=== PATIENT | male | born 1980 | race African-American/Black ===

== ENCOUNTER 2018-09-21 12:42 | Emergency (ER) | payer SELFPAY ==
--- NOTE | 2018-09-21 13:11 | EDM.PDOC ---
ED HPI GENERAL MEDICAL PROBLEM - General Chief Complaint: Gastrointestinal Problem Stated Complaint: STOMACH FLU Time Seen by Provider: 09/21/18 12:43 Source of Information: Reports: Patient History Limitations: Reports: No Limitations - History of Present Illness INITIAL COMMENTS - FREE TEXT/NARRATIVE: HISTORY AND PHYSICAL: History of present illness: Patient is a 38-year-old male presents to the ED today with concern of nausea since last night. Patient states this night he had 1-2 episodes of vomiting. Patient states he's here in the ED today with symptoms of nausea and is here to get a work note saying he can go back to work. Patient denies any abdominal pain or any other symptoms at this time. Patient denies fever, chills, chest pain, shortness of breath, or cough. Denies headache, neck stiff ness, change in vision, syncope, or near syncope. Denies vomiting, abdominal pain, diarrhea, constipation, or dysuria. Has not noted any blood in urine or stool. Patient has been eating and drinking appropriately. Review of systems: As per history of present illness and below otherwise all systems reviewed and negative. Past medical history: As per history of present illness and as reviewed below otherwise noncontributory. Surgical history: As per history of present illness and as reviewed below otherwise noncontributory. Social history: See social history for further information Family history: As per history of present illness and as reviewed below otherwise noncontributory. Physical exam: General: Patient is alert, oriented, and in no acute distress. Patient sitting comfortably on exam table. HEENT: Atraumatic, normocephalic, pupils equal and reactive bilaterally, negative for conjunctival pallor or scleral icterus, mucous membranes moist, TMs normal bilaterally, throat clear, neck supple, nontender, trachea midline. No drooling or trismus noted. No meningeal signs. No hot potato voice noted. Lungs: Clear to auscultation, breath sounds equal bilaterally, chest nontender. Heart: S1S2, regular rate and rhythm without overt murmur Abdomen: Soft, nondistended, nontender. Negative for masses or hepatosplenomegaly. Negative for costovertebral tenderness. Pelvis: Stable nontender. Genitourinary: Deferred. Rectal: Deferred. Skin: Intact, warm, dry. No lesions or rashes noted. Extremities: Atraumatic, negative for cords or calf pain. Neurovascular unremarkable. Neuro: Awake, alert, oriented. Cranial nerves II through XII unremarkable. Cerebellum unremarkable. Motor and sensory unremarkable throughout. Exam nonfocal. Notes: Discussed the importance for follow-up with primary care provider. Voices understanding and is agreeable to plan of care. Denies any further questions or concerns at this time. Diagnostics: None (Patient declines all diagnostics) Therapeutics: None Prescription: Zofran Impression: Nausea Medical screening exam Plan: 1. Take medication as prescribed. You can alternate ibuprofen and Tylenol as directed for pain and discomfort. 2. Follow-up with the primary care provider as discussed. Return to the ED as needed and as discussed. Definitive disposition and diagnosis as appropriate pending reevaluation and review of above. - Related Data Allergies Allergy/AdvReac Type Severity Reaction Status Date / Time No Known Allergies Allergy Verified 09/21/18 12:50 Home Meds: Home Meds Ondansetron [Zofran ODT] 4 mg PO Q6H #7 tab.dis 09/21/18 [Rx] Past Medical History Cardiovascular History: Reports: Hypertension Social & Family History - Family History Family Medical History: Noncontributory - Tobacco Use Smoking Status *Q: Never Smoker - Recreational Drug Use Recreational Drug Use: No ED ROS GENERAL - Review of Systems Review Of Systems: ROS reveals no pertinent complaints other than HPI. ED EXAM, GENERAL - Physical Exam Exam: See Below (See dictation) Course - Vital Signs Last Recorded V/S: Last Vital Signs Temp 36.3 C 09/21/18 12:51 Pulse 89 09/21/18 12:51 Resp 16 09/21/18 12:51 BP 159/104 H 09/21/18 12:51 Pulse Ox 95 09/21/18 12:51 Departure - Departure Time of Disposition: 13:11 Disposition: Home, Self-Care 01 Clinical Impression: Nausea, Encounter for medical screening examination - Discharge Information Prescriptions: Ondansetron [Zofran ODT] 4 mg PO Q6H #7 tab.dis Instructions: Medical Screening Exam, Nausea, Adult, [id number] Referrals: PCP,None [Primary Care Provider] - Forms: ED Department Discharge Additional Instructions: The following information is given to patients seen in the emergency department who are being discharged to home. This information is to outline your options for follow-up care. We provide all patients seen in our emergency department with a follow-up referral. The need for follow-up, as well as the timing and circumstances, are variable depending upon the specifics of your emergency department visit. If you don't have a primary care physician on staff, we will provide you with a referral. We always advise you to contact your personal physician following an emergency department visit to inform them of the circumstance of the visit and for follow-up with them and/or the need for any referrals to a consulting specialist. The emergency department will also refer you to a specialist when appropriate. This referral assures that you have the opportunity for follow-up care with a specialist. All of these measure are taken in an effort to provide you with optimal care, which includes your follow-up. Under all circumstances we always encourage you to contact your private physician who remains a resource for coordinating your care. When calling for follow-up care, please make the office aware that this follow-up is from your recent emergency room visit. If for any reason you are refused follow-up, please contact the [facility] Emergency Department at and asked to speak to the emergency department charge nurse. [facility] [address] [place] [id number] [facility] [address] [place] [id number] 1. Take medication as prescribed. You can alternate ibuprofen and Tylenol as directed for pain and discomfort. 2. Follow-up with the primary care provider as discussed. Return to the ED as needed and as discussed.
== END 2018-09-21 13:20 | disposition home or self-care (01) ==
LOC: MW.ED 12:42
DX: R11.2 Nausea with vomiting, unspecified (principal)
CPT/HCPCS: 99282; 99283

== ENCOUNTER 2018-12-15 03:20 | Emergency (ER) | payer SELFPAY ==
[2018-12-15] MEDS ORDERED: Sodium Chloride 0.9% 10 ML Syringe FLUSH PRN (03:40)
[2018-12-15] MEDS ORDERED: Sodium Chloride 0.9% 2.5 ML Syringe FLUSH PRN (03:40)
[2018-12-15] MEDS ORDERED: Ketorolac 30 MG/ML SDV IVPUSH ONE (03:40)
--- NOTE | 2018-12-15 03:46 | EDM.PDOC ---
ED HPI GENERAL MEDICAL PROBLEM - General Chief Complaint: Back Pain or Injury Stated Complaint: BACK PAIN Time Seen by Provider: 12/15/18 03:30 - History of Present Illness INITIAL COMMENTS - FREE TEXT/NARRATIVE: HISTORY AND PHYSICAL: History of present illness: The patient is a 38-year-old male with a history of kidney stones for which she has had lithotripsy in the past who presents with greater than 2 weeks of lumbar back pain more on the right side. The patient initially told the triage nurse that it started worsening after playing basketball and he thought that he pulled muscles in his back but he says he has had issues with his back on and off over many years and has never sought any professional evaluation or treatment for it such as imaging or physical therapy. He says that he did not have an acute injury to her so weeks ago but he attributes the pain worsening after playing basketball. The pain is mostly on the right side and does come around to the anterior side of his abdomen and he has had urinary frequency but no hematuria or dysuria. He's had no numbness or tingling no bowel or bladder disturbances and the pain does not radiate to his leg and there is no numbness weakness or tingling in his legs bilaterally. The patient has tried a patch that he bought [id number] to help with the pain but is not taking any oral medications even Tylenol or ibuprofen. In the past he says he has never sought treatment and has never received any medications for episodes of back pain he has had. 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 He's had no recent trauma and denies any past trauma only that he has had back problems for many years without a formal diagnosis. The patient tells me that certain movements will make the pain worse and in the past when he has had flareups of it just simple turning and movements can aggravated and this is very similar. The patient tells me that he just got off a plane in [place] and drove here to [place] where he is staying. He did not go to the ER there treatment he chose to come here instead. Review of systems: As per history of present illness and below otherwise all systems reviewed and negative. Past medical history: As per history of present illness and as reviewed below otherwise noncontributory. Surgical history: As per history of present illness and as reviewed below otherwise noncontributory. Social history: No reported history of drug or alcohol abuse. Family history: As per history of present illness and as reviewed below otherwise noncontributory. Physical exam: General: Well-developed well-nourished man who is nontoxic and ambulatory in the ED. He walks without ataxia and vital signs are noted by me HEENT: Atraumatic, normocephalic,negative for conjunctival pallor or scleral icterus, mucous membranes moist, throat clear, neck supple, nontender, trachea midline. Lungs: Clear to auscultation, breath sounds equal bilaterally, chest nontender. Heart: S1S2, regular rate and rhythm no overt murmurs Abdomen: Soft, nondistended, nontender. NABS. Negative for costovertebral tenderness. Pelvis: Stable nontender. Genitourinary: Deferred. Rectal: Deferred. Extremities: Atraumatic, full range of motion without defects or deficits Neurovascular unremarkable. Neuro: Awake, alert, oriented. Cranial nerves II through XII unremarkable. Cerebellum unremarkable. Motor and sensory unremarkable throughout. Exam nonfocal. Dorsi and plantar flexion is intact 5/5 inclusive of the great toe and patellar reflexes are +2 over 4 bilaterally. Patient's gait in the ED was steady. Back: There are no midline step-offs tenderness defects of the thoracic or lumbar spine no CVA tenderness and no reproducible paraspinal lumbar musculature discomfort or spasm and no SI joint discomfort or tenderness. In fact on palpation I was unable to reproduce the pain and the patient says that he does not feel it when I touch the area more when he does certain movements. Diagnostics: CBC CMP UA with reflex CT scan of the abdomen and pelvis lumbar spine Therapeutics: IV placement, Toradol I discussed with the patient that I will do imaging to evaluate him for kidney stone as this has been a problem in the past and the pain is more on the right side. He also has the complaints of the frequency of urination. The pain appears to be out of proportion to my exam and the patient has definite concerns about the intensity of the pain and the chronicity of it. All testing results have been discussed with the patient and he definitely is having more pain with movement. He is aware that he needs a follow-up with urology for further imaging as indicated and he does not want to call for a ride and wants to drive himself home so I will give him [facility] to try at home for the discomfort and pain. Impression: Lumbar back pain, intrarenal kidney stone right, ill-defined lesion right kidney Definitive disposition and diagnosis as appropriate pending reevaluation and review of above. low back Pain Score (Numeric/FACES): 10 - Related Data Allergies Allergy/AdvReac Type Severity Reaction Status Date / Time hydromorphone [From Dilaudid] Allergy Itching Verified 12/15/18 03:34 Home Meds: Home Meds . [No Known Home Meds] 12/15/18 [History] Past Medical History Cardiovascular History: Reports: Hypertension Genitourinary History: Reports: Renal Calculus - Past Surgical History Male Surgical History: Reports: Lithotripsy ([facility]) Social & Family History - Family History Family Medical History: Noncontributory - Tobacco Use Smoking Status *Q: Never Smoker - Recreational Drug Use Recreational Drug Use: No ED ROS GENERAL - Review of Systems Review Of Systems: ROS reveals no pertinent complaints other than HPI. ED EXAM, GENERAL - Physical Exam Exam: See Below (See dictation) Course - Vital Signs Last Recorded V/S: Last Vital Signs Temp 35.6 C 12/15/18 03:23 Pulse 79 12/15/18 03:23 Resp 18 12/15/18 03:23 BP 163/115 H 12/15/18 03:23 Pulse Ox 96 12/15/18 03:23 - Orders/Labs/Meds Orders: Active Orders 24 hr Category Date Time Status Sodium Chloride 0.9% [Normal Saline] 1,000 ml Med 12/15/18 04:06 Active IV STAT Sodium Chloride 0.9% [Saline Flush] Med 12/15/18 03:40 Active 10 ml FLUSH ASDIRECTED PRN Sodium Chloride 0.9% [Saline Flush] Med 12/15/18 03:40 Active 2.5 ml FLUSH ASDIRECTED PRN Saline Lock Insert [OM.PC] Stat Oth 12/15/18 03:40 Ordered Medication Orders Sodium Chloride (Normal Saline) 1,000 mls @ 999 mls/hr IV STAT ONE Stop: 12/15/18 05:06 Last Admin: 12/15/18 04:09 Dose: 999 mls/hr Sodium Chloride (Saline Flush) 10 ml FLUSH ASDIRECTED PRN PRN Reason: Keep Vein Open Sodium Chloride (Saline Flush) 2.5 ml FLUSH ASDIRECTED PRN PRN Reason: Keep Vein Open Labs: Laboratory Tests 12/15/18 12/15/18 12/15/18 Range/Units 03:30 03:45 03:45 WBC 7.85 (4.0-11.0) K/uL RBC 4.67 (4.50-5.90) M/uL Hgb 14.1 (13.0-17.0) g/dL Hct 42.2 (38.0-50.0) % MCV 90.4 (80.0-98.0) fL MCH 30.2 (27.0-32.0) pg MCHC 33.4 (31.0-37.0) g/dL RDW Std Deviation 45.5 (28.0-62.0) fl RDW Coeff of Eduarda 14 (11.0-15.0) % Plt Count 227 (150-400) K/uL MPV 11.70 (7.40-12.00) fL Neut % (Auto) 59.0 (48.0-80.0) % Lymph % (Auto) 28.4 (16.0-40.0) % [place] % (Auto) 10.1 (0.0-15.0) % Eos % (Auto) 1.9 (0.0-7.0) % Baso % (Auto) 0.6 (0.0-1.5) % Neut # (Auto) 4.6 (1.4-5.7) K/uL Lymph # (Auto) 2.2 (0.6-2.4) K/uL [place] # (Auto) 0.8 (0.0-0.8) K/uL Eos # (Auto) 0.2 (0.0-0.7) K/uL Baso # (Auto) 0.1 (0.0-0.1) K/uL Nucleated RBC % 0.0 /100WBC Nucleated RBCs # 0 K/uL Sodium 145 (136-148) mmol/L Potassium 4.0 (3.5-5.1) mmol/L Chloride 106 (98-107) mmol/L Carbon Dioxide 29.8 (21.0-32.0) mmol/L BUN 17 (7.0-18.0) mg/dL Creatinine 1.3 (0.8-1.3) mg/dL Est Cr Clr Drug Dosing 75.53 mL/min Estimated GFR (MDRD) > 60.0 ml/min Glucose 94 (74-106) mg/dL Calcium 8.8 (8.5-10.1) mg/dL Total Bilirubin 0.3 (0.2-1.0) mg/dL AST 21 (15-37) IU/L ALT 20 (14-63) IU/L Alkaline Phosphatase 78 (46-116) U/L Total Protein 6.6 (6.4-8.2) g/dL Albumin 3.2 L (3.4-5.0) g/dL Globulin 3.4 (2.6-4.0) g/dL Albumin/Globulin Ratio 0.9 (0.9-1.6) Urine Color YELLOW Urine Appearance CLEAR Urine pH 6.0 (5.0-8.0) Ur Specific [place] >= 1.030 (1.001-1.035) Urine Protein NEGATIVE (NEGATIVE) mg/dL Urine Glucose (UA) NEGATIVE (NEGATIVE) mg/dL Urine Ketones NEGATIVE (NEGATIVE) mg/dL Urine Occult Blood MODERATE H (NEGATIVE) Urine Nitrite NEGATIVE (NEGATIVE) Urine Bilirubin NEGATIVE (NEGATIVE) Urine Urobilinogen 0.2 (<2.0) EU/dL Ur Leukocyte Esterase NEGATIVE (NEGATIVE) Urine RBC 2-4 (0-2/HPF) Urine WBC 0-1 (0-5/HPF) Ur Epithelial Cells RARE (NONE-FEW) Urine Bacteria RARE (NEGATIVE) Meds: Medications Generic Name Dose Route Start Last Admin Trade Name Freq PRN Reason Stop Dose Admin Sodium Chloride 1,000 mls @ 999 mls/hr 12/15/18 04:06 12/15/18 04:09 Normal Saline IV 12/15/18 05:06 999 mls/hr STAT ONE Administration Sodium Chloride 10 ml 12/15/18 03:40 Saline Flush FLUSH ASDIRECTED PRN Keep Vein Open Sodium Chloride 2.5 ml 12/15/18 03:40 Saline Flush FLUSH ASDIRECTED PRN Keep Vein Open Discontinued Medications Generic Name Dose Route Start Last Admin Trade Name Freq PRN Reason Stop Dose Admin Ketorolac Tromethamine 30 mg 12/15/18 03:40 12/15/18 03:48 Toradol IVPUSH 12/15/18 03:41 30 mg ONETIME ONE Administration Departure - Departure Time of Disposition: 04:37 Disposition: Home, Self-Care 01 Condition: Good Clinical Impression: Kidney stone on right side Back pain Qualifiers: Back pain location: low back pain Chronicity: unspecified Back pain laterality : right Sciatica presence: without sciatica Qualified Code(s): M54.5 - Low back pain - Discharge Information Referrals: PCP,None [Primary Care Provider] - Forms: ED Department Discharge Additional Instructions: The following information is given to patients seen in the emergency department who are being discharged to home. This information is to outline your options for follow-up care. We provide all patients seen in our emergency department with a follow-up referral. The need for follow-up, as well as the timing and circumstances, are variable depending upon the specifics of your emergency department visit. If you don't have a primary care physician on staff, we will provide you with a referral. We always advise you to contact your personal physician following an emergency department visit to inform them of the circumstance of the visit and for follow-up with them and/or the need for any referrals to a consulting specialist. The emergency department will also refer you to a specialist when appropriate. This referral assures that you have the opportunity for followup care with a specialist. All of these measure are taken in an effort to provide you with optimal care, which includes your followup. Under all circumstances we always encourage you to contact your private physician who remains a resource for coordinating your care. When calling for followup care, please make the office aware that this follow-up is from your recent emergency room visit. If for any reason you are refused follow-up, please contact the [facility] emergency department at and ask to speak to the emergency department charge nurse. [facility] Specialty Care-Urology [address] [place] [id number] [facility] Primary care- Internal Medicine and Family [address] [id number] Please call and connect with our urologist as well as a primary care physician in our clinic to schedule follow-up for your CT scan findings as well as this episodic lower back pain. Please use medications as prescribed to you from [facility], Flexeril tramadol and diclofenac as directed. Do all movements slowly and apply topical patches or pain medication as you choose over-the- counter. Return to ER as needed and as discussed - My Orders Last 24 Hours: My Active Orders 12/15/18 03:40 Sodium Chloride 0.9% [Saline Flush] 10 ml FLUSH ASDIRECTED PRN Sodium Chloride 0.9% [Saline Flush] 2.5 ml FLUSH ASDIRECTED PRN Saline Lock Insert [OM.PC] Stat 12/15/18 04:06 Sodium Chloride 0.9% [Normal Saline] 1,000 ml IV STAT - Assessment/Plan Last 24 Hours: My Active Orders 12/15/18 03:40 Sodium Chloride 0.9% [Saline Flush] 10 ml FLUSH ASDIRECTED PRN Sodium Chloride 0.9% [Saline Flush] 2.5 ml FLUSH ASDIRECTED PRN Saline Lock Insert [OM.PC] Stat 12/15/18 04:06 Sodium Chloride 0.9% [Normal Saline] 1,000 ml IV STAT
[2018-12-15] MEDS ORDERED: Sodium Chloride 0.9% 1,000 ML IV ONE (04:06)
--- NOTE | 2018-12-15 04:20 | CT ---
INDICATION: Back pain TECHNIQUE: CT lumbar spine without i.v. contrast. Coronal and sagittal reformats were obtained. COMPARISON: None FINDINGS: Alignment: Unremarkable. Bone: No acute fractures or aggressive bone lesions are identified. Disc: The disc spaces are unremarkable in appearance. The facet joints are unremarkable. Soft tissue: There is a 6 mm stone present in the lower pole of the right kidney. IMPRESSION: 1. No acute osseous injuries are identified. Dictated by Uriel Stevens MD @ 12/15/2018 4:19:04 AM Please note that all CT scans at this facility use dose modulation, iterative reconstruction, and/or weight-based dosing when appropriate to reduce radiation dose to as low as reasonably achievable. Dictated by: Uriel Stevens MD @ 12/15/2018 04:19:12 (Electronically Signed)
[2018-12-15 04:22] LABS: BLOOD UREA NITROGEN,BUN 17 mg/dL (7.0-18.0); CARBON DIOXIDE,CO2 29.8 mmol/L (21.0-32.0); CHLORIDE,CL 106 mmol/L (98-107); GLUCOSE RANDOM 94 mg/dL (74-106); SODIUM,NA 145 mmol/L (136-148)
--- NOTE | 2018-12-15 04:22 | CT ---
INDICATION: Low back pain. History of stones TECHNIQUE: CT Abdomen and pelvis without i.v. contrast. Coronal and sagittal reformats were obtained. COMPARISON: None FINDINGS: Lower chest: Unremarkable. Liver: Unremarkable. Spleen: Unremarkable. Pancreas: Unremarkable. Gallbladder: Unremarkable. Kidney: There is a 6 mm nonobstructing stone present in the lower pole of the right kidney measuring 1.6 cm. Cortical scarring is present within the right kidney with mild renal atrophy noted. There is an ill-defined low-density lesion in the lower pole of the right kidney. Adrenal: Unremarkable. Bowel: Unremarkable. The appendix is normal in appearance and size. Vascular: Unremarkable. Lymph: Unremarkable. Peritoneum: Unremarkable. No pneumoperitoneum is seen. No significant ascites is noted. Pelvis: Unremarkable. Soft tissue: Unremarkable. Bone: Unremarkable for age. IMPRESSION: 1. There is an ill-defined low-density lesion in the lower pole of the right kidney. Comparison with any prior outside imaging is recommended. If these cannot be obtained, follow up outpatient renal MRI recommended. Dictated by Uriel Stevens MD @ 12/15/2018 4:21:24 AM Please note that all CT scans at this facility use dose modulation, iterative reconstruction, and/or weight-based dosing when appropriate to reduce radiation dose to as low as reasonably achievable. Dictated by: Uriel Stevens MD @ 12/15/2018 04:22:04 (Electronically Signed)
== END 2018-12-15 05:40 | disposition home or self-care (01) ==
LOC: MW.ED 03:20
DX: N20.0 Calculus of kidney (principal); M54.5 Low back pain; N28.9 Disorder of kidney and ureter, unspecified; I10 Essential (primary) hypertension; Z88.6 Allergy status to analgesic agent
CPT/HCPCS: 36415; 72131; 74176; 80053; 81001; 85025; 96361; 96374; 99284; J1885; J7040